=== PATIENT | female | born 1975 | race American Indian/Alaskan Native ===

== ENCOUNTER 2019-09-02 13:26 | Emergency (ER) | payer SELFPAY ==
[2019-09-02 13:33] VITALS: BP 160/94
--- NOTE | 2019-09-02 13:33 | Event Note ---
ED Screening Note Date of service: 09/02/19 Time: 13:31 ED Screening Note: This is a 44 y.o. F. that presents to the ER with right sided facial pain. Patient reports pain is worse in right ear. This initial assessment/diagnostic orders/clinical plan/treatment(s) is/are subject to change based on patients health status, clinical progression and re- assessment by fellow clinical providers in the ED. Further treatment and workup at subsequent clinical providers discretion. Patient/guardian urged not to elope from the ED as their condition may be serious if not clinically assessed and managed. Initial orders include:
--- NOTE | 2019-09-02 15:16 | Emergency Department Report ---
ED General Adult HPI - General Chief complaint: Dental/Oral Stated complaint: MIGRAINE Time Seen by Provider: 09/02/19 13:30 Source: patient Mode of arrival: Ambulatory Limitations: No Limitations - History of Present Illness Initial comments: 44-year-old female with one-week history of right sided headache, right ear pain, right upper molar pain. Patient denies fever, nausea, vomiting. Patient reports relief with Tylenol. -: week(s) (1) Location: head, mouth Quality: aching Consistency: intermittent Improves with: medication Worsens with: none, medication (Tylenol) Associated Symptoms: headaches. denies: fever/chills, nausea/vomiting Treatments Prior to Arrival: other (Tylenol) - Related Data Previous Rx's Medication Instructions Recorded Last Taken Type traMADol [Ultram 50 MG tab] 50 mg PO Q6HR PRN #15 tablet 03/02/16 Unknown Rx Naproxen [Naprosyn] 500 mg PO BID #20 tablet 09/02/19 Unknown Rx Penicillin V Potassium 500 mg PO TID 10 Days #30 tablet 09/02/19 Unknown Rx Allergies Allergy/AdvReac Type Severity Reaction Status Date / Time No Known Allergies Allergy Verified 06/27/14 13:36 ED Review of Systems ROS: Stated complaint: MIGRAINE Other details as noted in HPI Comment: All other systems reviewed and negative Constitutional: denies: chills, fever ENT: ear pain, dental pain Neurological: headache. denies: weakness, numbness, paresthesias ED Past Medical Hx - Past Medical History Previous Medical History?: Yes Hx Hypertension: Yes Hx Psychiatric Treatment: Yes (schizophrenia, bipolar disorder, depression) Additional medical history: denies - Surgical History Past Surgical History?: Yes Hx Breast Surgery: Yes (Cyst removed) Additional Surgical History: ankle surgery - Social History Smoking Status: Never Smoker Substance Use Type: None - Medications Home Medications: Home Medications Medication Instructions Recorded Confirmed Last Taken Type traMADol [Ultram 50 MG tab] 50 mg PO Q6HR PRN #15 tablet 03/02/16 Unknown Rx Naproxen [Naprosyn] 500 mg PO BID #20 tablet 09/02/19 Unknown Rx Penicillin V Potassium 500 mg PO TID 10 Days #30 tablet 09/02/19 Unknown Rx ED Physical Exam - General Limitations: No Limitations General appearance: alert (patient talking on cell phone), in no apparent distress - Head Head exam: Present: atraumatic, normocephalic - Eye Eye exam: Present: normal appearance, PERRL, EOMI - ENT ENT exam: Present: mucous membranes moist, TM's normal bilaterally, other (tooth number what appears to be missing, however that is where patient's pain originates, no obvious swelling present) - Neck Neck exam: Present: normal inspection. Absent: tenderness, lymphadenopathy - Respiratory Respiratory exam: Present: normal lung sounds bilaterally. Absent: respiratory distress - Cardiovascular Cardiovascular Exam: Present: regular rate, normal rhythm - GI/Abdominal GI/Abdominal exam: Absent: distended - Extremities Exam Extremities exam: Present: normal inspection - Neurological Exam Neurological exam: Present: alert, oriented X3 - Psychiatric Psychiatric exam: Present: normal affect, normal mood - Skin Skin exam: Present: warm, dry, intact, normal color ED Course Vital Signs 09/02/19 13:31 Temperature 98.2 F Pulse Rate 67 Respiratory 20 Rate Blood Pressure 160/94 [Left] O2 Sat by Pulse 99 Oximetry Critical care attestation.: If time is entered above; I have spent that time in minutes in the direct care of this critically ill patient, excluding procedure time. ED Disposition Clinical Impression: Toothache Disposition: DC-01 TO HOME OR SELFCARE Is pt being admited?: No Condition: Stable Instructions: Toothache (ED) Prescriptions: Naproxen [Naprosyn] 500 mg PO BID #20 tablet Penicillin V Potassium 500 mg PO TID 10 Days #30 tablet Referrals: [facility] [Outside] - 3-5 Days Time of Disposition: 15:17
== END 2019-09-02 15:37 | disposition home or self-care (01) ==
LOC: ED 13:26
DX: K08.89 Other specified disorders of teeth and supporting structures (principal); R51 Headache; H92.01 Otalgia, right ear; F20.9 Schizophrenia, unspecified; F31.9 Bipolar disorder, unspecified; Z98.890 Other specified postprocedural states

== ENCOUNTER 2022-06-28 17:45 | Emergency (ER) | payer BC ==
--- NOTE | 2022-06-28 20:36 | XRay Report ---
RIGHT KNEE 4 VIEW(S) INDICATION / CLINICAL INFORMATION: heard a pop COMPARISON: None available. FINDINGS: BONES / JOINT(S): No acute fracture or subluxation. No significant arthritis. SOFT TISSUES: No significant abnormality. ADDITIONAL FINDINGS: None. IMPRESSION: 1. No acute findings. Signer Name: Vu Rodriguez MD Signed: 06/28/2022 8:32 PM Workstation Name: [id number]
[2022-06-28] MEDS ORDERED: HYDROcodone/ACETAMINOPHEN 5-325 MG TAB PO STA (22:33)
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
[2022-06-29 00:01] VITALS: BP 130/77
== END 2022-06-29 00:01 | disposition home or self-care (01) ==
LOC: ED 17:45
DX: M23.91 Unspecified internal derangement of right knee (principal); I10 Essential (primary) hypertension; F31.9 Bipolar disorder, unspecified; Z98.890 Other specified postprocedural states; Z79.899 Other long term (current) drug therapy
CPT/HCPCS: 99283